=== PATIENT | male | born 1975 | race Caucasian/White ===

== ENCOUNTER → 2020-10-20 | Outpatient (CLI) | payer OTHER ==
--- NOTE | 2020-10-21 00:16 | ECWPNPC ---
PATIENT NAME: LUIS VASQUEZ : 1975 GENDER: MALE VISIT DATE: 10/20/2020 DISCHARGE DATE: 10/20/20910 VISIT LOCKED DATE TIME: PHYSICIAN: TOBI SHAFFER RESOURCE: TOBI SHAFFER REASON FOR APPOINTMENT 1. LUMBAR RADICULOPATHY HISTORY OF PRESENT ILLNESS DEPRESSION SCREENING: PHQ-2 (2015 EDITION) LITTLE INTEREST OR PLEASURE IN DOING THINGS?NOT AT ALL FEELING DOWN, DEPRESSED, OR HOPELESS?NOT AT ALL TOTAL SCORE0 GENERAL: 45-YEAR-OLD GENTLEMAN HERE FOR EVALUATION OF LOW BACK PAIN AND BILATERAL LEG RADICULAR SYMPTOMS. THIS BEGAN WITHOUT PRECIPITATING EVENT IN JUNE 2020. HAD PHYSICAL THERAPY FOR LOW BACK WHICH MADE PAIN WORSE. HISTORY OF CHRONIC BILATERAL HIP PAIN AND HAD RIGHT TROCHANTERIC BURSAL INJECTION IN JULY 2020 WITH IMPROVEMENT OF RIGHT HIP PAIN. REVIEWED MRI OF THE LS-SPINE AND DISCUSSED TREATMENT PLAN. DENIES BOWEL OR BLADDER INCONTINENCE. DENIES RECENT ILLNESS OR SUDDEN WEIGHT LOSS. - - -. FALL RISK SCREENING: SCREENING : NO FALLS REPORTED IN THE LAST YEAR . PAIN SCREENING: PATIENT HAS A COMPLAINT OF ACUTE OR CHRONIC PAIN :YES LOCATION OF PAIN:LOW BACK INTENSITY OF PAIN (SCALE OF 1 TO 10):6 WHAT DOES YOUR PAIN FEEL LIKE:BURNING, SHARP DURATION:CONTINOUS, CONSTANT, ALL DAY PAIN IS INCREASED BY:ACTIVITIES PAIN IS DECREASED BY:SITTING NURSING NOTE: - - -. PAIN CENTER INTAKE QUESTIONS: DO YOU HAVE A HISTORY OF MRSA? :NO DO YOU TAKE A BLOOD THINNERS? :NO DO YOU HAVE ANY BLEEDING DISORDERS? :NO ANY NEW NUMBNESS OR WEAKNESS IN YOUR LEGS OR ARMS? :YES BOTH LEGS, RIGHT NOW IT IS MOSTLY IN THE LEFT LEG ANY PACEMAKER,DEFIBRILLATOR, OR DORSAL COLUMN STIMULATOR? :NO DO YOU HAVE ANY RASHES OR OPEN SORES? :NO ARE YOU ALLERGIC TO IV DYE? :NO ARE YOU DIABETIC? :NO ANY NEW PROBLEMS WITH YOUR MEDICATIONS? :NO HAVE YOU RECEIVED A VACCINE IN THE PAST 30 DAYS? :NO DO YOU PLAN TO RECEIVE A VACCINE IN THE NEXT 21 DAYS? :NO DO YOU NEED ANY PRESCRIPTION? :NO DO YOU TAKE ANY IMMUNOSUPPRESSIVE MEDICATIONS? :NO IS THERE A CHANCE YOU COULD BE ? :NO ARE YOU BREAST FEEDING? :NO CURRENT MEDICATIONS TAKING IBUPROFEN 800 MG TABLET 1 TABLET WITH FOOD OR MILK NEEDED ORALLY THREE TIMES A DAY TAKING ACETAMINOPHEN 325 MG TABLET 1 TABLET NEEDED ORALLY EVERY 4 HRS NOT-TAKING DOXYCYCLINE HYCLATE 100 MG TABLET 1 TABLET ORALLY ONCE A DAY NOT-TAKING EMOLLIENT BASE - CREAM DIRECTED EXTERNALLY NEEDED NOT-TAKING HYDROCORTISONE 1 % CREAM 1 APPLICATION RECTAL THREE TIMES A DAY NOT-TAKING OSELTAMIVIR PHOSPHATE 75 MG CAPSULE 1 CAPSULE ORALLY TWICE A DAY NOT-TAKING GUAIFENESIN 600 MG TABLET EXTENDED RELEASE DIRECTED ORALLY TWICE A DAY NOT-TAKING GUAIFENESIN 100 MG/5ML SYRUP 10 ML NEEDED ORALLY EVERY 4 HRS NOT-TAKING TERBINAFINE 1 % CREAM 1 APPLICATION EXTERNALLY TWICE A DAY MEDICATION LIST REVIEWED AND RECONCILED WITH THE PATIENT PAST MEDICAL HISTORY ASTIGMATISM LEFT EYE CORNEAL SCAR GANGLION CYST MIGRAINE SNAPPING HIP SYNDROME LEFT FOOT PAIN CHRONIC LOWER BACK PAIN ALLERGIES N.K.D.A. SURGICAL HISTORY LEFT WRIST 2010 FAMILY HISTORY FATHER: 72 YRS MOTHER: ALIVE 78 YRS SIBLINGS: ALIVE SON(S): ALIVE DAUGHTER(S): ALIVE 1 BROTHER(S) - HEALTHY. 2 SON(S) , 3 DAUGHTER(S) - HEALTHY. SOCIAL HISTORY GENERAL: TOBACCO USE ARE YOU A:NONSMOKER LATEX QUESTIONNAIRE LATEX ALLERGY : HAVE YOU EVER DEVELOPED ANY TYPE OF REACTION AFTER HANDLING LATEX PRODUCTS SUCH RUBBER GLOVES, CONDOMS, DIAPHRAGMS, BALLOONS, SOCKS, OR UNDERWEAR?NO LATEX ALLERGY : HAVE YOU EVER DEVELOPED ANY TYPE OF REACTION DURING OR AFTER DENTAL APPOINTMENT, VAGINAL/RECTAL EXAMINATION, SURGICAL PROCEDURE, OR ANY OTHER EXPOSURE?NO LATEX RISK : HAVE YOU EVER HAD ANY DIFFICULTY BREATHING OR HIVES AFTER EATING OR HANDLING ANY FRUITS, OR VEGETABLES; SUCH KIWI, BANANAS, STONE FRUITS, OR CHESTNUTSNO LATEX RISK : DO YOU HAVE A PREVIOUS PERSONAL HISTORY OF MORE THAN NINE SURGERIES, SPINA BIFIDA, OR REPEATED CATHERIZATIONS? NO LATEX RISK : ARE YOU FREQUENTLY EXPOSED TO LATEX PRODUCTS IN YOUR OCCUPATION?NO DATE ASKED : 10/20/2020 ALCOHOL USE: NO. RECREATIONAL DRUG USE DRUG USE?NO LANGUAGE LANGUAGES SPOKEN:MALTESE LEARNING BARRIERS / SPECIAL NEEDS BARRIERS TO LEARNING?NO HEARING IMPAIRED?NO VISION IMPAIRED?YES :CORRECTIVE LENSES COGNITIVELY IMPAIRED?NO READINESS TO LEARN?YES LEARNING PREFERENCES?YES :BOOKLETS, HANDOUTS LEARNING CAPABILITIES PRESENT?YES EMOTIONAL BARRIERS?NO SPECIAL DEVICES?NO DRYWALL SANDER NEEDED?NO MARITAL STATUS: . HOSPITALIZATION/MAJOR DIAGNOSTIC PROCEDURE SEE ABOVE REVIEW OF SYSTEMS CONSTITUTIONAL: ANY RECENT FEVER NO . CHILLS NO . WEIGHT CHANGE OF UNKNOWN REASONS NO . GASTROENTEROLOGY: NEW UNEXPLAINABLE CHANGES IN BOWEL CONTROL NO . CONSTIPATION NO . GENITOURINARY: ANY NEW CHANGE IN BLADDER CONTROL? NO . NEUROLOGY: NEW ONSET DIZZINESS OR NEUROLOGICAL CHANGES NOT MENTIONED NO . NEW NUMBNESS OR PAIN PATTERNS NOT MENTIONED AND PERTINENT TO TODAY'S VISIT NO . CARDIOLOGY: NEW CHEST PRESSURE NO . PATIENT DENIES NO . RESPIRATORY: UNEXPLAINABLE COUGH NO . NEW SHORTNESS OF BREATH NO . VITAL SIGNS WT 213 LBS, HT 6'0, BMI 28.88 INDEX, BP 124/79 MM HG, HR 75 /MIN, RR 18 /MIN, TEMP 96.5 F, OXYGEN SAT % 99%, SAFE IN ENV? (Y/N) YEST.SAMANTHA MORRELL. EXAMINATION GENERAL EXAMINATION: GENERALNO ACUTE DISTRESS, WELL NOURISHED AND HYDRATED. PSYCHAPPROPRIATE MOOD AND AFFECT . FACE:UNREMARKABLE. NECK:NO LYMPHADENOPATHY, SUPPLE, NO THYROMEGALLY. LUNGS:CLEAR TO AUSCULTATION BILATERALLY, NO WHEEZES, RHONCHI, RALES. HEART:NO MURMURS, REGULAR RATE AND RHYTHM. MUSCULOSKELETAL:MUSCLE STRENGTH TESTING 5/5 BILATERAL UPPER/LOWER EXTREMITIES. LUMBAR: PALPATION: + FOR PAIN OVER L/S SPINE. + FOR PAIN OVER L/S PARSPINALS. NEUROLOGIC EXAM:NORMAL SENSATION TO LIGHT TOUCH LOWER EXTREMITIES. DTRS 1-2+ IN ALL 4 EXTREMITIES. DIAGNOSTIC TESTS REVIEWED MRI L/S SPINE . ASSESSMENTS DISPLACEMENT OF LUMBAR DISC WITH RADICULOPATHY - M51.16 (PRIMARY) TREATMENT DISPLACEMENT OF LUMBAR DISC WITH RADICULOPATHY MEDICATION: VALIUM TAB 10MG ORALLY (DIAZEPAM) (ORDERED FOR 11/03/2020) MEDICATION: OXYCODONE HCL TAB 5MG ORALLY (ORDERED FOR 11/03/2020) SALINE LOCK (ORDERED FOR 11/03/2020) NOTES: LUMBAR EPIDURAL STERIOD INJECTION PRINTED AND REVIEWED PRE PROCEDURE INFORMATION, PATIENT VERBALIZED UNDERSTANDING MINOO MORRELL. PROCEDURE CODES FA211 ESTABILISHED PATIENT [facility] FACILITY CHARGE DISPOSITION & COMMUNICATION FOLLOW UP POST (REASON: LUMBAR EPIDURAL STERIOD INJECTION) ELECTRONICALLY SIGNED BY NIKKI HOLBROOK ON 10/20/2020 AT 10:16 AM EDT DISCLAIMER : THIS IS A VISIT SUMMARY EXTRACTED FROM THE [employer] CHART. IT IS NOT A COPY OF THE [employer] PROGRESS NOTE. MTDD
== END ==
LOC: M PAIN 08:30
PROVIDERS: ATTEND Nurse Practitioner Family
DX: M51.16 Intervertebral disc disorders with radiculopathy, lumbar region (principal); G43.909 Migraine, unspecified, not intractable, without status migrainosus; Z79.899 Other long term (current) drug therapy

== ENCOUNTER → 2020-11-13 | Outpatient (CLI) | payer OTHER | LOC: M LABSMTC 08:19 | PROVIDERS: ATTEND Anesthesiology | DX: Z01.812 Encounter for preprocedural laboratory examination (principal); Z20.822 Contact with and (suspected) exposure to COVID-19 ==

== ENCOUNTER → 2020-11-18 | Outpatient (CLI) | payer OTHER ==
[~2020-11-18] MED LIST: ISOVUE-M 300 61% 15ML VIAL As Ordered ONE; LIDOCAINE 1% SDV 30ML VIAL As Ordered ONE; diazePAM 5MG TABLET As Ordered ONE; methylPREDNISolone SUSP 40MG/ML 1ML VIAL (DEPO MEDROL) As Ordered ONE; oxyCODONE 5MG TAB As Ordered ONE
--- NOTE | 2020-11-18 16:48 | REP ---
INDICATION: LESI. COMPARISON: None. TECHNIQUE: Three views. 9.1 seconds of fluoroscopy time is reported. FINDINGS: A sequence of 3 last image hold fluoroscopically obtained spot radiograph(s) of the lumbar spine document(s) needle position(s) and contrast injection associated with injection procedure. IMPRESSION: Procedural imaging. <Electronically signed by Luis Manuel Olvera > 11/18/20 [id number]
--- NOTE | 2020-11-24 02:33 | ECWPNPC ---
PATIENT NAME: LUIS VASQUEZ : 1975 GENDER: MALE VISIT DATE: 11/18/2020 DISCHARGE DATE: 11/18/20 172 VISIT LOCKED DATE TIME: PHYSICIAN: VANESSA LOCK MD RESOURCE: VANESSA LOCK MD REASON FOR APPOINTMENT 1. LUMBAR EPIDURAL STERIOD INJECTION HISTORY OF PRESENT ILLNESS GENERAL: -. FALL RISK SCREENING: SCREENING : NO FALLS REPORTED IN THE LAST YEAR. PAIN SCREENING: PATIENT HAS A COMPLAINT OF ACUTE OR CHRONIC PAIN :YES LOCATION OF PAIN:LOW BACK INTENSITY OF PAIN (SCALE OF 1 TO 10):8 WHAT DOES YOUR PAIN FEEL LIKE:ACHING, CONTINOUS, INTERMITTENT, SHARP, SHOOTING DURATION:MAINLY DURING THE DAY PAIN IS INCREASED BY:ACTIVITIES PAIN IS DECREASED BY:SITTING NURSING NOTE: -. PAIN CENTER INTAKE QUESTIONS: DO YOU HAVE A HISTORY OF MRSA? :NO DO YOU TAKE A BLOOD THINNERS? :NO DO YOU HAVE ANY BLEEDING DISORDERS? :NO ANY NEW NUMBNESS OR WEAKNESS IN YOUR LEGS OR ARMS? :NO ANY PACEMAKER,DEFIBRILLATOR, OR DORSAL COLUMN STIMULATOR? :NO DO YOU HAVE ANY RASHES OR OPEN SORES? :NO ARE YOU ALLERGIC TO IV DYE? :NO ARE YOU DIABETIC? :NO ANY NEW PROBLEMS WITH YOUR MEDICATIONS? :NO HAVE YOU RECEIVED A VACCINE IN THE PAST 30 DAYS? :NO DO YOU PLAN TO RECEIVE A VACCINE IN THE NEXT 21 DAYS? :NO DO YOU TAKE ANY IMMUNOSUPPRESSIVE MEDICATIONS? :NO ANY HISTORY OF SEIZURES? :NO ANY HISTORY OF CARDIAC ISSUES OR EVENTS? :NO DO YOU HAVE ANY KIDNEY OR LIVER DISEASE? :NO DO YOU HAVE SLEEP APNEA? :NO ANY RECENT HEAD INJURY? :NO DO YOU HAVE ANY NEW INFECTIONS? :NO IS THERE A CHANCE YOU COULD BE ? :NO ARE YOU BREAST FEEDING? :NO WHEN DID YOU LAST EAT? : -11/17/20@1900 WHEN DID YOU LAST DRINK? : -11/18/20@0730 WHAT DID YOU LAST DRINK? : -COFFEE NAME OF PERSON DRIVING YOU HOME? : -, CASIMIRO DO YOU HAVE ANY OTHER QUESTIONS OR CONCERNS? : -DENIES CURRENT MEDICATIONS TAKING IBUPROFEN 800 MG TABLET 1 TABLET WITH FOOD OR MILK NEEDED ORALLY THREE TIMES A DAY TAKING ACETAMINOPHEN 325 MG TABLET 1 TABLET NEEDED ORALLY EVERY 4 HRS TAKING CELECOXIB 200 MG CAPSULE 1 CAPSULE WITH FOOD ORALLY ONCE A DAY TAKING GABAPENTIN 100 MG CAPSULE 2 CAPSULE ORALLY ONCE A DAY NOT-TAKING DOXYCYCLINE HYCLATE 100 MG TABLET 1 TABLET ORALLY ONCE A DAY NOT-TAKING EMOLLIENT BASE - CREAM DIRECTED EXTERNALLY NEEDED NOT-TAKING HYDROCORTISONE 1 % CREAM 1 APPLICATION RECTAL THREE TIMES A DAY NOT-TAKING OSELTAMIVIR PHOSPHATE 75 MG CAPSULE 1 CAPSULE ORALLY TWICE A DAY NOT-TAKING GUAIFENESIN 600 MG TABLET EXTENDED RELEASE DIRECTED ORALLY TWICE A DAY NOT-TAKING GUAIFENESIN 100 MG/5ML SYRUP 10 ML NEEDED ORALLY EVERY 4 HRS NOT-TAKING TERBINAFINE 1 % CREAM 1 APPLICATION EXTERNALLY TWICE A DAY MEDICATION LIST REVIEWED AND RECONCILED WITH THE PATIENT PAST MEDICAL HISTORY ASTIGMATISM LEFT EYE CORNEAL SCAR GANGLION CYST MIGRAINE SNAPPING HIP SYNDROME LEFT FOOT PAIN CHRONIC LOWER BACK PAIN ALLERGIES N.K.D.A. SURGICAL HISTORY LEFT WRIST 2010 SOCIAL HISTORY GENERAL: TOBACCO USE ARE YOU A:NONSMOKER LATEX QUESTIONNAIRE LATEX ALLERGY : HAVE YOU EVER DEVELOPED ANY TYPE OF REACTION AFTER HANDLING LATEX PRODUCTS SUCH RUBBER GLOVES, CONDOMS, DIAPHRAGMS, BALLOONS, SOCKS, OR UNDERWEAR?NO LATEX ALLERGY : HAVE YOU EVER DEVELOPED ANY TYPE OF REACTION DURING OR AFTER DENTAL APPOINTMENT, VAGINAL/RECTAL EXAMINATION, SURGICAL PROCEDURE, OR ANY OTHER EXPOSURE?NO LATEX RISK : HAVE YOU EVER HAD ANY DIFFICULTY BREATHING OR HIVES AFTER EATING OR HANDLING ANY FRUITS, OR VEGETABLES; SUCH KIWI, BANANAS, STONE FRUITS, OR CHESTNUTSNO LATEX RISK : DO YOU HAVE A PREVIOUS PERSONAL HISTORY OF MORE THAN NINE SURGERIES, SPINA BIFIDA, OR REPEATED CATHERIZATIONS? NO LATEX RISK : ARE YOU FREQUENTLY EXPOSED TO LATEX PRODUCTS IN YOUR OCCUPATION?NO DATE ASKED : 10/20/2020 ALCOHOL USE: NO. RECREATIONAL DRUG USE DRUG USE?NO LANGUAGE LANGUAGES SPOKEN:MALAY LEARNING BARRIERS / SPECIAL NEEDS BARRIERS TO LEARNING?NO HEARING IMPAIRED?NO VISION IMPAIRED?YES COGNITIVELY IMPAIRED?NO :CORRECTIVE LENSES READINESS TO LEARN?YES LEARNING PREFERENCES?YES :BOOKLETS, HANDOUTS LEARNING CAPABILITIES PRESENT?YES EMOTIONAL BARRIERS?NO SPECIAL DEVICES?NO BUILDING CODE ADMINISTRATOR NEEDED?NO MARITAL STATUS: . VITAL SIGNS WT 204.2 LBS, HT 6'0, BMI 27.69 INDEX, BP 109/72 MM HG, HR 76 /MIN, RR 18 /MIN, TEMP 98.0 F, OXYGEN SAT % 99%, SAFE IN ENV? (Y/N) Y, NA INITIALS AW 1417, REVIEWED BY: WALTER. EXAMINATION GENERAL EXAMINATION: THE PATIENT IS ALERT, ORIENTED TIMES THREE AND COOPERATIVE. LUNGS ARE CLEAR TO AUSCULTATION. HEART SHOWS REGULAR RHYTHM, NO MURMURS AND NO GALLOPS. ASSESSMENTS DISPLACEMENT OF LUMBAR DISC WITH RADICULOPATHY - M51.16 (PRIMARY) TREATMENT DISPLACEMENT OF LUMBAR DISC WITH RADICULOPATHY [facility] FLUORO GUIDE SPINE INJECTION (PAIN)[id number] MEDICATION: OXYCODONE HCL TAB 5MG ORALLY LEVY BATRES 11/18/2020 2:21:10 PM > VERIFIED JERRYTOMER 11/18/2020 2:24:09 PM > ADMINISTERED [facility] 11/18/2020 2:32:12 PM > 20G IV ACCESS OBTAINED IN LAC. PATIENT TOLERATED WELL MEDICATION: VALIUM TAB 10MG ORALLY (DIAZEPAM)LEVY BATRES 11/18/2020 2:21:28 PM > VERIFIED JERRYTOMER 11/18/2020 2:24:36 PM > ADMINISTERED PROCEDURES PAIN NURSING RECORD PROCEDURE IN ROOM 1605, PHYSICIAN IN ROOM 1618, START 1621, FINISH 1623, PHYSICIAN OUT OF ROOM 1624, OUT OF ROOM 1633, ECG NORMAL SINUS, PATIENT SHIELDED YES, SAFETY STRAP YES, PREP BETADINE Steve BATRES RN, DRESSING TEGADERM DR. LOCK LOC: 1. ALERT, ORIENTED, JERRYTOMER 11/18/2020 4:22:15 PM > RESP: 1. REGULAR, NO DYSPNEA, JERRYTOMER 11/18/2020 4:22:21 PM > COLOR: 1. PINK, [facility] 11/18/2020 4:22:26 PM > SKIN: 1. WARM, DRY, JERRYTOMER 11/18/2020 4:22:34 PM > POSITION: 1. PRONE VITALS: HR 60, 128/82, 98%, R14, TBRADLEYRN HR 62, 133/84, 98% R14 @ 1615 TBRADLEYRN EXIT VITALS HR 59, 123/77, 99% R16 PAIN 3/10 @1630 TBRADLEYRN NOTES Krystin EDWARDS RN COMPLETION OF PROCEDURE APPOINTMENT: POST PAIN 3, DRESSING SITE DRY AND INTACT, IV DISCONTINUED, SITE CLEAR, CATHETER INTACT BY LMAURESumit COSTA, GAIT STEADY, TEACHING COMPLETED, PATIENT ACKNOWLEDGES UNDERSTANDING YES, PROCEDURE APPOINTMENT COMPLETED AT 1630 PRE PROCEDURE DIAGNOSIS LUMBAR DISC DISORDER WITH RADICULOPATHY POST PROCEDURE DIAGNOSIS LUMBAR DISC DISORDER WITH RADICULOPATHY PROCEDURE LUMBAR EPIDURAL STEROID INJECTION UNDER FLUOROSCOPIC GUIDANCE SURGEON DR. VANESSA LOCK RESTAURANT RECRUITER NONE ANESTHESIA LOCAL PRE PROCEDURE NOTE THE PATIENT HAS A HISTORY OF CHRONIC LOW BACK PAIN. I EVALUATED THE PATIENT AND REVIEWED THE CHART. I WENT OVER THE RISKS, ALTERNATIVES, AND BENEFITS ASSOCIATED WITH THIS PROCEDURE. THE PATIENT WOULD LIKE TO PROCEED AND GIVE CONSENT TO PERFORMED THE PROCEDURE. THE PATIENT DENIES UNEXPLAINABLE WEIGHT LOSS, FEVER, CHILLS, OR NEW CHANGES IN URINARY OR BOWEL CONTROL. THE PATIENT IS COVID-19 NEGATIVE DESCRIPTION OF PROCEDURE THE PATIENT WAS BROUGHT TO THE PROCEDURE ROOM AND PLACED IN THE PRONE POSITION. THE LUMBOSACRAL AREA WAS CLEANED WITH BETADINE SOLUTION AND DRAPED ASEPTICALLY. THE PROCEDURE WAS DONE UNDER STERILE CONDITIONS. A TIMEOUT WAS PERFORMED WHERE THE CONSENTED SITE WAS VERIFIED WITH EVERYONE IN THE ROOM. UNDER FLUOROSCOPIC GUIDANCE, THE TARGET POINT WAS SELECTED AT THE INTERLAMINAR LEVEL OF L4-L5. I CONFIRMED AGAIN THE SITE OF TARGET. LIDOCAINE WAS USED TO NUMB THE SKIN AND THE SUBCUTANEOUS TISSUE BELOW IT. EPIDURAL TUOHY NEEDLE, 17-GAUGE, WAS ADVANCED UNDER FLUOROSCOPIC GUIDANCE AND FOLLOWING PATIENT FEEDBACK UNTIL THE EPIDURAL SPACE WAS REACHED 6 CM DEEP INTO THE SKIN BY THE LOSS OF RESISTANCE TECHNIQUE. ISOVUE-M DYE 30%, 0.25 ML, WAS INJECTED SHOWING ADEQUATE SPREAD OF THE DYE. THEN, A SOLUTION OF 3 ML OF NORMAL SALINE WITH DEPO-MEDROL 40 MG WAS INJECTED SLOWLY FOLLOWING PATIENT FEEDBACK. THE MEDICATIONS WERE VERIFIED WITH THE NURSE. THERE WAS NO EVIDENCE OF BLOOD, PARESTHESIA OR CEREBROSPINAL FLUID DURING THE PROCEDURE. THE PATIENT WAS SENT TO THE RECOVERY ROOM. THE PATIENT WAS MOVING THE EXTREMITIES AND DOING WELL. THERE WERE NO COMPLICATIONS DURING THE PROCEDURE. ESTIMATED BLOOD LOSS WAS LESS THAN 5 ML. FLUOROSCOPY TIME WAS 7 SECONDS POST PROCEDURE NOTE THE PATIENT WILL BE SEEN IN A FOLLOW UP IN THE NEXT FEW WEEKS. I AM LOOKING FOR LONG LASTING RELIEF FOR THE PATIENT WITH THIS INTERVENTION. INSTRUCTIONS WERE GIVEN, QUESTIONS WERE ANSWERED, AND THE PATIENT EXPRESSED UNDERSTANDING AND AGREES WITH THE PLAN. I, AMBER JAMIL, DOCUMENTED THE ABOVE INFORMATION ACTING A SCRIBE FOR DR. LOCK. I HAVE REVIEWED THE ABOVE DOCUMENT, WRITTEN BY AMBER JAMIL, [employer], AND I VERIFY THAT IT IS ACCURATE PROCEDURE CODES 06945 LUMBAR/SACRAL W/ IMAGING DISPOSITION & COMMUNICATION FOLLOW UP FOLLOW UP WITH FABRICATION OPERATOR (REASON: POST LUMBAR EPIDURAL STEROID INJECTION ) ELECTRONICALLY SIGNED BY VANESSA LOCK MD, MD ON 11/23/2020 AT 11:21 AM EDT DISCLAIMER : THIS IS A VISIT SUMMARY EXTRACTED FROM THE [employer] CHART. IT IS NOT A COPY OF THE [employer] PROGRESS NOTE. BILLD
== END ==
LOC: M PAIN 14:00
PROVIDERS: ATTEND Anesthesiology
DX: M51.16 Intervertebral disc disorders with radiculopathy, lumbar region (principal); G43.909 Migraine, unspecified, not intractable, without status migrainosus; Z79.899 Other long term (current) drug therapy
CPT/HCPCS: 62323; J1030; Q9967

== ENCOUNTER → 2020-12-02 | Outpatient (CLI) | payer OTHER ==
--- NOTE | 2020-12-03 04:50 | ECWPNPC ---
PATIENT NAME: LUIS VASQUEZ : 1975 GENDER: MALE VISIT DATE: 12/02/2020 DISCHARGE DATE: 12/02/20 1137 VISIT LOCKED DATE TIME: PHYSICIAN: TOBI SHAFFER RESOURCE: TOBI SHAFFER REASON FOR APPOINTMENT 1. POST LUMBAR EPIDURAL STERIOD INJECTION HISTORY OF PRESENT ILLNESS GENERAL: HERE FOR POSTPROCEDURE FOLLOW-UP. HAD LUMBAR EPIDURAL STEROID INJECTION ON 11/18/2020. REPORTING GREATER THAN 80% REDUCTION IN PAIN AND RESOLUTION OF LEFT LEG RADICULAR SYMPTOMS SINCE THE PROCEDURE. REPORTING IMPROVED ACTIVITY TOLERANCE. RATING PAIN LEVEL IS A 2/10 VAS. REPORTING A PRESSURE-LIKE SENSATION IN THE LOWER BACK AREA SINCE THE PROCEDURE. THERE IS NO SITE TENDERNESS OR REDNESS. NO RECENT FEVERS OR ILLNESS. HAVING MORE RIGHT LEG RADICULAR SYMPTOMS. WE DISCUSSED REPEATING EPIDURAL WITH CATHETER TO THE RIGHT PER DR. LOCK SUGGESTION. WE DISCUSSED HOLDING OFF FOR A FEW MONTHS TO SEE IF THE PRESSURE SENSATION IN THE LOWER BACK AREA WILL DISSIPATE WHICH I ASSUME WILL OVER TIME. OVERALL HE IS DOING QUITE WELL TODAY. -. FALL RISK SCREENING: SCREENING : NO FALLS REPORTED IN THE LAST YEAR. PAIN SCREENING: PATIENT HAS A COMPLAINT OF ACUTE OR CHRONIC PAIN :YES LOCATION OF PAIN:LOW BACK INTENSITY OF PAIN (SCALE OF 1 TO 10):2 WHAT DOES YOUR PAIN FEEL LIKE:OTHER PRESSURE DURATION:CONTINOUS, CONSTANT, ALL DAY PAIN IS INCREASED BY:ACTIVITIES PAIN IS DECREASED BY:OTHERS RESTING NURSING NOTE: -. PAIN CENTER INTAKE QUESTIONS: DO YOU HAVE A HISTORY OF MRSA? :NO DO YOU TAKE A BLOOD THINNERS? :NO DO YOU HAVE ANY BLEEDING DISORDERS? :NO ANY NEW NUMBNESS OR WEAKNESS IN YOUR LEGS OR ARMS? :YES RIGHT LEG NUMBESS ANY PACEMAKER,DEFIBRILLATOR, OR DORSAL COLUMN STIMULATOR? :NO DO YOU HAVE ANY RASHES OR OPEN SORES? :NO ARE YOU ALLERGIC TO IV DYE? :NO ARE YOU DIABETIC? :NO ANY NEW PROBLEMS WITH YOUR MEDICATIONS? :NO HAVE YOU RECEIVED A VACCINE IN THE PAST 30 DAYS? :NO DO YOU PLAN TO RECEIVE A VACCINE IN THE NEXT 21 DAYS? :NO DO YOU NEED ANY PRESCRIPTION? :NO DO YOU TAKE ANY IMMUNOSUPPRESSIVE MEDICATIONS? :NO IS THERE A CHANCE YOU COULD BE ? :NO ARE YOU BREAST FEEDING? :NO CURRENT MEDICATIONS TAKING IBUPROFEN 800 MG TABLET 1 TABLET WITH FOOD OR MILK NEEDED ORALLY THREE TIMES A DAY TAKING ACETAMINOPHEN 325 MG TABLET 1 TABLET NEEDED ORALLY EVERY 4 HRS NOT-TAKING DOXYCYCLINE HYCLATE 100 MG TABLET 1 TABLET ORALLY ONCE A DAY NOT-TAKING EMOLLIENT BASE - CREAM DIRECTED EXTERNALLY NEEDED NOT-TAKING HYDROCORTISONE 1 % CREAM 1 APPLICATION RECTAL THREE TIMES A DAY NOT-TAKING OSELTAMIVIR PHOSPHATE 75 MG CAPSULE 1 CAPSULE ORALLY TWICE A DAY NOT-TAKING GUAIFENESIN 600 MG TABLET EXTENDED RELEASE DIRECTED ORALLY TWICE A DAY NOT-TAKING GUAIFENESIN 100 MG/5ML SYRUP 10 ML NEEDED ORALLY EVERY 4 HRS NOT-TAKING TERBINAFINE 1 % CREAM 1 APPLICATION EXTERNALLY TWICE A DAY NOT-TAKING CELECOXIB 200 MG CAPSULE 1 CAPSULE WITH FOOD ORALLY ONCE A DAY NOT-TAKING GABAPENTIN 100 MG CAPSULE 2 CAPSULE ORALLY ONCE A DAY MEDICATION LIST REVIEWED AND RECONCILED WITH THE PATIENT PAST MEDICAL HISTORY ASTIGMATISM LEFT EYE CORNEAL SCAR GANGLION CYST MIGRAINE SNAPPING HIP SYNDROME LEFT FOOT PAIN CHRONIC LOWER BACK PAIN ALLERGIES N.K.D.A. SOCIAL HISTORY GENERAL: TOBACCO USE ARE YOU A:NONSMOKER LATEX QUESTIONNAIRE LATEX ALLERGY : HAVE YOU EVER DEVELOPED ANY TYPE OF REACTION AFTER HANDLING LATEX PRODUCTS SUCH RUBBER GLOVES, CONDOMS, DIAPHRAGMS, BALLOONS, SOCKS, OR UNDERWEAR?NO LATEX ALLERGY : HAVE YOU EVER DEVELOPED ANY TYPE OF REACTION DURING OR AFTER DENTAL APPOINTMENT, VAGINAL/RECTAL EXAMINATION, SURGICAL PROCEDURE, OR ANY OTHER EXPOSURE?NO LATEX RISK : HAVE YOU EVER HAD ANY DIFFICULTY BREATHING OR HIVES AFTER EATING OR HANDLING ANY FRUITS, OR VEGETABLES; SUCH KIWI, BANANAS, STONE FRUITS, OR CHESTNUTSNO LATEX RISK : DO YOU HAVE A PREVIOUS PERSONAL HISTORY OF MORE THAN NINE SURGERIES, SPINA BIFIDA, OR REPEATED CATHERIZATIONS? NO LATEX RISK : ARE YOU FREQUENTLY EXPOSED TO LATEX PRODUCTS IN YOUR OCCUPATION?NO DATE ASKED : 12/02/2020 ALCOHOL USE: NO. RECREATIONAL DRUG USE DRUG USE?NO LANGUAGE LANGUAGES SPOKEN:TAMAZIGHT LEARNING BARRIERS / SPECIAL NEEDS BARRIERS TO LEARNING?NO HEARING IMPAIRED?NO VISION IMPAIRED?YES :CORRECTIVE LENSES COGNITIVELY IMPAIRED?NO READINESS TO LEARN?YES LEARNING PREFERENCES?YES :BOOKLETS, HANDOUTS LEARNING CAPABILITIES PRESENT?YES EMOTIONAL BARRIERS?NO SPECIAL DEVICES?NO COURTROOM DEPUTY OR CALENDAR CLERK NEEDED?NO MARITAL STATUS: . REVIEW OF SYSTEMS CONSTITUTIONAL: ANY RECENT FEVER NO . CHILLS NO . WEIGHT CHANGE OF UNKNOWN REASONS NO . GASTROENTEROLOGY: NEW UNEXPLAINABLE CHANGES IN BOWEL CONTROL NO . CONSTIPATION NO . GENITOURINARY: ANY NEW CHANGE IN BLADDER CONTROL? NO . NEUROLOGY: NEW ONSET DIZZINESS OR NEUROLOGICAL CHANGES NOT MENTIONED NO . NEW NUMBNESS OR PAIN PATTERNS NOT MENTIONED AND PERTINENT TO TODAY'S VISIT NO . CARDIOLOGY: NEW CHEST PRESSURE NO . PATIENT DENIES NO . RESPIRATORY: UNEXPLAINABLE COUGH NO . NEW SHORTNESS OF BREATH NO . VITAL SIGNS WT 207.8 LBS, HT 6'0, BMI 28.18 INDEX, BP 125/80 MM HG, HR 70 /MIN, RR 18 /MIN, TEMP 97.0 F, OXYGEN SAT % 97%, SAFE IN ENV? (Y/N) YES, NA INITIALS RI 11:10T.SAMANTHA MORRELL. EXAMINATION GENERAL EXAMINATION: GENERALAWAKE,ALERT ,PLEASANT . PSYCHAFFECT NORMAL . LUNGS:LUNG SWAN ARE CLEAR TO AUSCULTATION BILATERALLY. GOOD MOVEMENT OF AIR . HEART:S1, S2 IN A REGULAR RATE AND RHYTHM. NO SIGNIFICANT MURMURS, RUBS OR GALLOPS NOTED . ASSESSMENTS OTHER CHRONIC PAIN - G89.29 (PRIMARY) DISPLACEMENT OF LUMBAR DISC WITH RADICULOPATHY - M51.16 TREATMENT OTHER CHRONIC PAIN PAIN PROCEDURE LOGDATE OF PROCEDURE1PROCEDURE:LUMBAR EPIDURAL STEROID INJECTIONAMOUNT OF PRE SEDATEVALIUM 10MG, OXYCODONE 5MGRESULT:GREATER THAN 80% REDUCTION IN PAIN POST PROCEDURE.RESOLUTION OF LEFT LEG RADICULAR SYMPTOMS POST PROCEDURE. NOTES: PATIENT WILL RETURN IN 2 MONTHS FOR REEVALUATION. CONSIDER REPEATING LUMBAR EPIDURAL STEROID INJECTION WITH CATHETER TO THE RIGHT IF HE CONTINUES WITH RIGHT LEG RADICULAR SYMPTOMS. PROCEDURE CODES FA211 ESTABILISHED PATIENT [facility] FACILITY CHARGE DISPOSITION & COMMUNICATION FOLLOW UP 2 MONTHS (REASON: LOW BACK PAIN WITH LUMBAR RADICULOPATHY. RESPONDS WELL TO LUMBAR EPIDURAL STEROID INJECTION.) ELECTRONICALLY SIGNED BY NIKKI HOLBROOK ON 12/02/2020 AT 12:50 PM EDT DISCLAIMER : THIS IS A VISIT SUMMARY EXTRACTED FROM THE [employer] CHART. IT IS NOT A COPY OF THE [employer] PROGRESS NOTE. ELDON
== END ==
LOC: M PAIN 11:15
PROVIDERS: ATTEND Nurse Practitioner Family
DX: M51.16 Intervertebral disc disorders with radiculopathy, lumbar region (principal); G89.29 Other chronic pain; G43.909 Migraine, unspecified, not intractable, without status migrainosus; Z79.899 Other long term (current) drug therapy

== ENCOUNTER → 2021-02-02 | Outpatient (CLI) | payer OTHER | LOC: M PAIN 11:00 | PROVIDERS: ATTEND Anesthesiology | DX: M51.16 Intervertebral disc disorders with radiculopathy, lumbar region (principal); G89.29 Other chronic pain; G43.909 Migraine, unspecified, not intractable, without status migrainosus; Z79.899 Other long term (current) drug therapy ==

== ENCOUNTER → 2021-02-09 | Outpatient (CLI) | payer OTHER | LOC: M LABSMTC 09:21 | PROVIDERS: ATTEND Anesthesiology | DX: Z01.812 Encounter for preprocedural laboratory examination (principal); Z20.822 Contact with and (suspected) exposure to COVID-19 ==

== ENCOUNTER → 2021-02-14 | Outpatient (CLI) | payer OTHER ==
--- NOTE | 2021-02-14 10:48 | REP ---
INDICATION: LESI. COMPARISON: None. TECHNIQUE: Three views. 7.2 seconds of fluoroscopy time is reported. FINDINGS: A sequence of 3 last image hold fluoroscopically obtained spot radiograph(s) of the lumbar spine document(s) needle position(s) and contrast injection associated with injection procedure. IMPRESSION: Procedural imaging. <Electronically signed by Luis Manuel Olvera > 02/14/21 1040
== END ==
LOC: M PAIN 09:20
PROVIDERS: ATTEND Anesthesiology
DX: M51.16 Intervertebral disc disorders with radiculopathy, lumbar region (principal); G43.909 Migraine, unspecified, not intractable, without status migrainosus; Z79.899 Other long term (current) drug therapy
CPT/HCPCS: 62323; J1030; Q9967

== ENCOUNTER → 2021-04-27 | Outpatient (CLI) | payer OTHER | LOC: M PAIN 10:45 | PROVIDERS: ATTEND Anesthesiology | DX: M51.16 Intervertebral disc disorders with radiculopathy, lumbar region (principal); G89.29 Other chronic pain; Z79.899 Other long term (current) drug therapy ==